=== PATIENT | male | born 1980 | race Caucasian/White ===

== ENCOUNTER 2024-01-08 07:20 | Outpatient (CLI) | payer OTHER, SELFPAY ==
--- NOTE | ~2024-01-08 | MR_ITS ---
EXAMINATION: MR knee RT wo con DATE: 01/08/2024 08:44 INDICATION: Acute onset right knee pain TECHNIQUE: Magnetic resonance imaging (MRI) of the right knee was performed without intravenous contr ast. Sequences included coronal PD-weighted FSE, coronal PD-weighted FS FSE, sagittal T2-weighted FS E, sagittal PD-weighted FS FSE and axial PD weighted fat saturated FSE. COMPARISON: None. FINDINGS: Medial compartment: Medial meniscus is normal. Articular cartilage is normal. Lateral compartment: Lateral meniscus is normal. Small partial-thickness chondral fissure at the central aspect of the lat eral tibial plateau. Patellofemoral compartment: Partial-thickness chondral fissuring which appears to involve less than 50% the cartilage thickness a t the medial patellar facet and inferior aspect of the lateral facet along the apical ridge. Trochlea r cartilage is normal. Ligaments and tendons: Anterior and posterior cruciate ligaments are normal. The medial collateral ligament and fibular fina ateral ligament complex are normal. The extensor mechanism is normal. The visualized medial and later al hamstring tendons as well as the iliotibial band are normal. Fluid: Physiologic amount of fluid in the joint space. No loose osteochondral bodies identified. Osseous/other: Normal marrow signal. No fracture or pathologic marrow replacing process. IMPRESSION: 1. 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 Reviewed, dictated and finalized at location B. IMPRESSION: 1. Negligible osteoarthritis with small regions of mild partial-thickness chond ral fissuring at the lateral patellar facet and along the patella.
== END 2024-01-08 07:21 | disposition home or self-care (01) ==
PROVIDERS: PCP Physician Assistant; Visit Provider Physician Assistant
DX: M25.561 Pain in right knee (principal)
CPT/HCPCS: 73721